=== PATIENT | female | born 1940 | race Caucasian/White ===

== ENCOUNTER 2016-11-07 23:53 | Emergency (ER) | payer OTHER ==
[2016-11-08 00:13] LABS: BASOPHILS 0.4 %; BASOPHILS ABSOLUTE 0.03 10/3/uL (0.0-0.16); EOSINOPHILS 0.5 %; EOSINOPHILS ABSOLUTE 0.04 10/3/uL (0.0-0.53); ER CBC TAT 0 Hrs 08 Mins; HEMATOCRIT 33.5 % (36.0-48.0); HEMOGLOBIN 10.8 g/dL (12.0-16.0); IMMATURE GRANULOCYTES 0.2 %; IMMATURE GRANULOCYTES ABSOLUTE 0.02 10/3/uL (0.0-0.11); LYMPHOCYTES 17.4 %; LYMPHOCYTES ABSOLUTE 1.45 10/3/uL (0.67-4.30); MEAN CORPUS HGB CONC 32.2 g/dL (32.0-36.0); MEAN CORPUSCULAR HEMOGLOB 29.7 pg (26.0-34.0); MEAN PLATELET VOLUME 9.8 fL (9.2-13.0); MONOCYTES 11.6 %; MONOCYTES ABSOLUTE 0.96 10/3/uL (0.21-1.20); NEUTROPHILS 69.9 %; NEUTROPHILS ABSOLUTE 5.81 10/3/uL (2.02-8.40); PLATELET COUNT 309 10/3/uL (150-400); RBC DISTRIBUTION WIDTH 15.3 % (12.0-16.0); RED CELL COUNT 3.64 10/6/uL (4.0-5.6); WHITE BLOOD CELLS 8.3 10/3/uL (4.5-10.5)
[2016-11-08 00:14] LABS: MANUAL DIFF NO %
[2016-11-08 00:30] LABS: INTERNATIONAL NORMAL RATI 2.6 UNITS (-); PARTIAL THROMBO TIME 45.1 SEC (22.5-37.2)
[2016-11-08 00:32] LABS: LACTATE 0.8 MMOL/L (0.3-2.4)
[2016-11-08 00:49] LABS: BUN (BLOOD UREA NITROGEN) 27 MG/DL (6-23); CALCIUM, SERUM 8.3 MG/DL (8.5-10.4); CHLORIDE, SERUM 94 MMOL/L (96-112); CO2 (CARBON DIOXIDE) 37 MMOL/L (24-34); CREATININE 0.93 MG/DL (0.55-1.02); GFR AFRICAN AMERICAN 70 ML/MIN (>=60); GFR NON AFRICAN AMERICAN 60 ML/MIN (>=60); GLUCOSE, SERUM 99 MG/DL (60-99); SODIUM, SERUM 139 MMOL/L (135-148); TROPONIN I <0.02 NG/ML (<0.05)
[2016-11-08 00:55] LABS: CHEST PAIN PROFILE TAT 0 Hrs 44 Mins
[2016-11-08 01:02] LABS: ASCORBIC ACID (UR NOT ORDER) NEG (NEG); BILIRUBIN, URINE NEGATIVE (NEG); ER URINALYSIS TAT 0 Hrs 18 Mins; KETONE, URINE NEGATIVE (NEG); LEUKOCYTE ESTERASE(NOT OR NEG (NEG); NITRITE (URINE) NEG (NEG); WBC (NOT ORDERED) (RFLEX) 1 (0-5)
[2016-11-08 01:19] LABS: PROCALCITONIN <0.05 ng/mL (<0.5)
== END 2016-11-08 04:20 | disposition home or self-care (01) ==
LOC: ER 23:53
PROVIDERS: Nurse Practitioner
DX: S09.90XA Unspecified injury of head, initial encounter (principal); S51.812A Laceration without foreign body of left forearm, initial encounter; I10 Essential (primary) hypertension; Z87.01 Personal history of pneumonia (recurrent); Z86.73 Personal history of transient ischemic attack (TIA), and cerebral infarction without residual deficits; F03.90 Unspecified dementia, unspecified severity, without behavioral disturbance, psychotic disturbance, mood disturbance, and anxiety; Z85.3 Personal history of malignant neoplasm of breast; Z87.891 Personal history of nicotine dependence; Z88.1 Allergy status to other antibiotic agents; W19.XXXA Unspecified fall, initial encounter
CPT/HCPCS: 70450; 71010; 80048; 81001; 83605; 83735; 83880; 84145; 84484; 85025; 85610; 85730; 87040; 93005; 99285

== ENCOUNTER 2016-12-22 15:20 | Inpatient (IN) | payer OTHER ==
--- NOTE | ~2016-12-22 | CN ---
Consultation Report [place] [id number] [facility] [place] [place]. [address] NAME: BUCK RAMEY : 42 STATUS : ADM IN PAT#: [id number] AGE: 76 ADM/REG DATE : 12/22/16 MR#: [id number] REPORT SERV DATE: 12/23/16 DICTATED BY: PRINCE OLIVEIRA DATE: 12/23/16 REPORT STATUS : Draft TRANSCRIBED BY: MODAkash DATE: 12/23/16 CONSULTATION DATE OF CONSULTATION: 12/23/2016 CHIEF COMPLAINT: Left femoral neck fracture. HISTORY: The patient is a 76-year-old female with chronic atrial fibrillation, significant dementia who fell yesterday and was brought to the emergency room with left femoral neck fracture. She has significant dementia, cannot give history. No family members are present. PAST MEDICAL HISTORY: Hypertension, hypercholesterolemia, significant dementia, atrial fibrillation on Coumadin therapy, anxiety. ALLERGIES: AMOXICILLIN. SURGICAL HISTORY: She has had a right hip hemiarthroplasty. The date is unknown. Unknown if she has had any other surgeries. FAMILY HISTORY: Noncontributory. SOCIAL HISTORY: Unknown. REVIEW OF SYSTEMS: Unable to be taken due to the patient's mental state. PHYSICAL EXAMINATION: GENERAL: Well-developed, well-nourished female, on oxygen. She appears to be older than stated age. No acute distress. HEENT: Normocephalic, atraumatic. RESPIRATORY: Nonlabored respirations, on oxygen. EXTREMITIES: No cyanosis, clubbing, or edema. MUSCULOSKELETAL: She has pain with any motion of her hip. No tenderness to palpation around her hip, unable to follow commands to complete the musculoskeletal exam. PSYCH: She is not alert nor oriented. NEURO: Unable to be taken due to her mental state. DATA: X-ray show a left displaced femoral neck fracture. ASSESSMENT: Left femoral neck fracture. PLAN: She is on Coumadin therapy. Gave her fresh frozen plasma last night. We will plan for surgery today. I will give her fresh frozen plasma again based on her INR this morning. Consultation Report [place] [id number] [facility] [place]. [address] NAME: BUCK RAMEY : 42 STATUS : ADM IN PAT#: [id number] AGE: 76 ADM/REG DATE : 12/22/16 MR#: [id number] REPORT SERV DATE: 12/23/16 DICTATED BY: PRINCE OLIVEIRA DATE: 12/23/16 REPORT STATUS : Draft TRANSCRIBED BY: GUSTAVO DATE: 12/23/16 Plan for surgery this afternoon. BSRay/GUSTAVO Prince Oliveira MD / [id number] CC: Venancio Kumar M.D.
--- NOTE | ~2016-12-22 | OP ---
Record Of Operation [facility] [address] [place]. [address] NAME: BUCK RAMEY : 42 STATUS : ADM IN [facility]#: [id number] AGE: 76 ADM/REG DATE : 12/22/16 MR#: [id number] REPORT SERV DATE: 12/26/16 DICTATED BY: JANAE JONES DATE: 12/26/16 REPORT STATUS : Draft TRANSCRIBED BY: GUSTAVO DATE: 12/26/16 DATE OF PROCEDURE: PULMONARY CRITICAL CARE PROCEDURE NOTE PROCEDURE: A left 7-Niuean thoracostomy insertion. INDICATION: Left pneumothorax. ANALGESIA: Propofol and fentanyl infusions already running for sedation while on mechanical ventilation. Local anesthetic was 1% lidocaine approximately 3 mL intradermally using 25- gauge needle. CONSENT: Telephone consent from daughter with nursing witness per protocol. DESCRIPTION OF PROCEDURE: The patient was prepped and draped in usual sterile fashion. A small wheal of lidocaine was used and then deeper infiltration was conducted. There were air bubbles aspirated through the small bore needle. During lidocaine infiltration, subsequently, a small leonid was made with an 11 blade scalpel, and a 7-Niuean thoracostomy tube was inserted into the left fourth rib space in the axillary line. More air escaped through the thoracostomy tube once it was placed. It was sutured into position and connected to Atrium underwater seal. A followup chest x-ray was pending at the time of this dictation. IMMEDIATE COMPLICATIONS: None. ESTIMATED BLOOD LOSS: None. Peak pressures and oxygen saturation remained consistent throughout the procedure. DREA/GUSTAVO Janae Jones MD / [id number] CC: Venancio Kumar M.D.
--- NOTE | ~2016-12-22 | CN ---
Consultation Report [facility] [address] [place]. [address] NAME: BUCK RAMEY : 41 STATUS : [facility]M [facility]#: [id number] AGE: 76 ADM/REG DATE : 12/22/16 MR#: [id number] REPORT SERV DATE: 12/23/16 DICTATED BY: KIAH BOO DATE: 12/23/16 REPORT STATUS : Draft TRANSCRIBED BY: MODAkash DATE: 12/23/16 PULMONARY CONSULT NOTE DATE OF CONSULTATION: 12/23/2016 CONSULT REASON: COPD, chronic hypoxic respiratory failure, and left pleural effusion. CHIEF COMPLAINT: Unable to obtain due to the patient's current medical status. HISTORY OF PRESENT ILLNESS: Ms Ramey is a 76-year-old female with a past medical history of breast cancer, status post mastectomy two years ago along with dementia, who currently lives in a [facility] facility. The patient had a mechanical fall and broke her left hip and is in need for surgery. She broke her right hip around five years ago. She has had multiple strokes and currently has dementia. She is on chronic anticoagulation for atrial fibrillation. Family does not live with her clearly and were not able to give a clear history, but mentioned that her mental status is usually much better than what is currently noted. PAST MEDICAL HISTORY: Breast cancer, status post surgery two years ago; right hip fracture, status post surgery five years ago; history of multiple CVA; atrial fibrillation, on anticoagulation; former tobacco user, COPD presumably; and mild dementia. HOME MEDICATIONS: Medication list reviewed. The patient is on albuterol with regard to pulmonary medications. ALLERGIES: AMOXICILLIN. FAMILY HISTORY: According to the daughter, there is no pertinent family history, everyone is healthy. SOCIAL HISTORY: The patient currently lives in a [facility] facility, remote past smoking history, but this was significant according to the daughter, no alcohol or illicit drug use. REVIEW OF SYSTEMS: Unable to obtain due to the patient's current medical status. PHYSICAL EXAMINATION: VITAL SIGNS: Afebrile, heart rate 100 to 139, respiratory rate 18 to 24, currently on Vapotherm with an oxygen saturation of 99%, blood pressure currently anywhere between 120s and 160s. GENERAL: The patient is arousable, she does seem a little bit lethargic, however. The patient is clearly in pain. HEENT: Neck is supple. Consultation Report [facility] [address] [place]. [address] NAME: BUCK RAMEY : 42 STATUS : ADM IN PAT#: [id number] AGE: 76 ADM/REG DATE : 12/22/16 MR#: [id number] REPORT SERV DATE: 12/23/16 DICTATED BY: KIAH BOO DATE: 12/23/16 REPORT STATUS : Draft TRANSCRIBED BY: MODL DATE: 12/23/16 PULMONARY: Normal breath sounds bilaterally, decreased breath sounds on the left lower lobe, no wheezing. CARDIAC: Irregularly irregular, no murmurs. ABDOMEN: Soft, nontender, nondistended. EXTREMITIES: Lower extremity is very tender on the left side, but otherwise good pulses throughout. LABORATORY EXAMINATION: Mild leukocytosis, anemia, INR 3. Good kidney function. Last arterial blood gas shows no significant elevation of hypercapnia, but this was yesterday. Urinalysis shows moderate leukocyte esterase and 45 white blood cell count. IMAGING DATA: Chest x-ray shows a sustained large left effusion versus atelectasis. This was noted in October. ASSESSMENT AND PLAN: Ms Ramey is a 76-year-old female with a past medical history noted above, who presents to the Pulmonary consult for the above-named problems. Acute hypoxic respiratory failure: Unclear as to which the level of hypoxia, we need to wean the FiO2 as tolerated, possibly even come off Vapotherm if the patient can sustain that. First, I would like to obtain an arterial blood gas to make sure she is not hypercapnic. With regard to the hypoxia, I am concerned this patient has a history of breast cancer, the etiology of this left pleural effusion, and most likely, this patient needs to have her anticoagulation reversed and thoracentesis for cytology and relief of hypoxia to be done prior to surgery. I have placed a call out to the surgeon, and I placed a call out to the primary team to coordinate reversal of therapeutic anticoagulation for thoracentesis and surgery. Thank you very much for this consultation, please call us with any further questions or concerns, currently hoping to get the thoracentesis done in the morning. HFQ/MODL Kiah Boo MD / [id number] CC: Venancio Kumar M.D.
--- NOTE | ~2016-12-22 | HP ---
History And Physical [place] [id number] [facility] [place]. [address] NAME: BUCK RAMEY : 42 STATUS : ADM IN [facility]#: [id number] AGE: 76 ADM/REG DATE : 12/22/16 MR#: [id number] REPORT SERV DATE: 12/23/16 DICTATED BY: MAGALI KAY DATE: 12/23/16 REPORT STATUS : Draft TRANSCRIBED BY: MODL DATE: 12/23/16 DATE OF ADMISSION: 12/22/2016 CHIEF COMPLAINT: Left hip pain. HISTORY OF PRESENT ILLNESS: The patient is a 76-year-old elderly female, who is a resident of assisted living facility at [facility] with reported fall the p.m. of 4:23, x-ray was obtained at the facility, was found to have a left femoral neck fracture, therefore patient was sent to [facility] ER for further evaluation. Hip x-ray and pelvis x-ray in the ER did confirm left femoral neck fracture. Therefore the patient admitted for further management and orthopedic consult was obtained. The patient with advanced dementia, unable to obtain complete medical and family history. Most history obtained from reviewing medical record obtained from [facility] as well as reviewing the patient's daughter and son-in-law who were present at the bedside during the exam. ALLERGIES: AMOXICILLIN. CODE STATUS: DNR with limited intervention. HOME MEDICATIONS: Include 1. Albuterol inhalation q.2 hours p.r.n. for shortness of breath. 2. Norvasc 5 mg daily. 3. Colace 100 mg daily. 4. Lasix 40 mg daily. 5. Ativan 0.5 mg p.o. twice a day p.r.n. for anxiety. 6. Lopressor 100 mg p.o. twice a day. 7. Remeron 30 mg p.o. at bedtime. 8. Dilantin 300 mg at bedtime. 9. Potassium chloride 20 mEq p.o. daily. 10.Exelon patch 4.6 mg at bedtime. 11.Zoloft 100 mg p.o. daily. 12.Zocor 20 mg at bedtime. 13.Ultram 50 mg p.o. every 4 hours p.r.n. for complaint of pain. 14.Warfarin 3 mg p.o. at bedtime. PAST MEDICAL HISTORY: 1. Positive for hypertension. 2. Chronic atrial fibrillation, on Coumadin therapy. 3. Hypercholesteremia. 4. Anxiety disorder. 5. Advanced dementia. 6. COPD with history of tobacco abuse. 7. History of gastric ulcer. 8. History of left breast cancer, status post mastectomy and chemotherapy treatment. History And Physical [place] [id number] [place]. [address] NAME: BUCK RAMEY : 41 STATUS : ADM IN [facility]#: [id number] AGE: 76 ADM/REG DATE : 12/22/16 MR#: [id number] REPORT SERV DATE: 12/23/16 DICTATED BY: MAGALI KAY DATE: 12/23/16 REPORT STATUS : Draft TRANSCRIBED BY: GUSTAVO DATE: 12/23/16 9. History of pneumonia with sepsis. 10.History of CVA. 11.History of nonocclusive seizure disorder. 12.History of bilateral lower extremity cellulitis. 13.History of chronic hypoxic respiratory failure with O2 dependency. PAST SURGICAL HISTORY: 1. Right hip hemiarthroplasty approximately 5 to 6 years ago. 2. Right Port-A-Cath placement approximately two years ago. 3. Left mastectomy for left breast cancer, status post chemotherapy 2 years ago. SOCIAL HISTORY: The patient with history of tobacco abuse. The patient is a resident of [facility] since October of 2016. FAMILY HISTORY: Positive for hypertension, coronary disease, and CVA. REVIEW OF SYSTEMS: Limited but the patient able to answer yes or no to simple questions. The patient denies any complaint of pain. Family reports the patient had no history of eye surgery, had no problem with swallowing. The patient with history of hypertension, has had chronic atrial fibrillation, on chronic Coumadin therapy. The patient denies any complaint of difficulty breathing. Patient with history of COPD secondary to history of tobacco abuse. Has been on home oxygen but the patient's daughter is unsure of the amount she was receiving. She reports that every time her oxygen has been removed, she gets low oxygen level. The patient's daughter reports the patient has had pneumonia and reports that since her pneumonia, she has not been able to get off oxygen. The patient with history of gastric ulcer. The patient has not had any difficulty urinating and has not had any Ndiaye prior to admission to [facility]. Family aware Ndiaye was placed in the ER secondary to her pending surgery. Family reports the patient has had a right hip repair approximately 5 to 6 years ago secondary to fall and since then, she has not been ambulating as much. The patient has had history of bilateral lower extremity cellulitis. The patient with generalized weakness. The patient's daughter reports that last week, the patient was talking but now she is not able to talk much. The patient's daughter reports the patient has had history that was started when she was placed on an antibiotic when she was in [place] but unsure what type of antibiotic. She does note that the patient has a history of penicillin allergy. The patient with history of anxiety disorder. No history of diabetes and does have chronic Coumadin therapy for atrial fibrillation. PHYSICAL EXAMINATION: VITAL SIGNS: Temperature range of 96.9 to 98.8, heart rate ranged from 108 to 139, respiratory rate ranged from 18 to 20, blood pressure ranged systolic from 131 to 134 and History And Physical [address] [address] NAME: BUCK RAMEY : 42 STATUS : ADM IN [facility]#: [id number] AGE: 76 ADM/REG DATE : 12/22/16 MR#: [id number] REPORT SERV DATE: 12/23/16 DICTATED BY: MAGALI KAY DATE: 12/23/16 REPORT STATUS : Draft TRANSCRIBED BY: GUSTAVO DATE: 12/23/16 diastolic from 61 to 85, sat O2 at 99 to 100% on Vapotherm with 35% FiO2. DATA: Laboratory study on 12/22/2016, revealed an ABG on admission with pH of 7.35, PCO2 of 64, PO2 of 83, HCO2 of 34.7, and iO2 of 32.0. ABG repeated at 1837 hours revealed pH of 7.45, pCO2 of 38, PO2 of 92, HCO2 of 26.1, and iO2 of 50.0. Sodium 138, potassium 3.9, chloride 99, CO2 of 35, BUN 21, creatinine 0.77, glucose 132, and GFR of 76. WBC of 15.5, hemoglobin 9.4, hematocrit 29.1, and platelet of 226. INR of 2.6, PT of 27.2. 12/23/2016, labs revealed sodium of 140, potassium 4.3, chloride of 103, CO2 of 33, BUN 21, creatinine of 0.61, glucose of 145, and GFR of 89. WBC of 16.0, hemoglobin 8.9, hematocrit 28.5, and platelet of 198. INR of 3.0, PT of 31.1, and PTT of 43.8. I's and O's of 891/250. Chest x-ray on 12/22/2016, revealed mild interstitial edema with an enlarging left pleural effusion, increasing left perihilar and left basilar atelectasis. Brain CT without contrast, on 12/22/2016, revealed no acute hemorrhage. Stable moderate atrophy and chronic white matter gliosis. Hip x-ray on 12/22/2016, and pelvis AP on 12/22/2016, revealed left femoral neck fracture and right hip prosthesis. PHYSICAL EXAMINATION: GENERAL: The patient is an elderly female, in no acute distress noted, easily arousable from sleep, does nod head to yes or no simple questions, otherwise the patient is not vocalizing as much. HEENT: Oral mucosa is moist. Nasal cannula with Vapotherm in use. Eyes PERRL. Nonicteric bilaterally. NECK: No JVD noted. CHEST: Noted status post left mastectomy and no other chest deformity noted. LUNGS: Clear to auscultation bilaterally. Symmetric expansion but decreased breath sounds on bilateral bases. CV: Irregular rhythm noted but no murmurs noted. ABDOMEN: Soft, nontender. Positive bowel sounds noted. : Ndiaye in use. Positive clear urine in bag to gravity. EXTREMITIES: Noted generalized arthritis in bilateral upper extremity. No edema in bilateral upper extremity. Bilateral lower arms with peripheral IV secured with dry and intact dressing. No edema or redness noted. Bilateral lower extremity with no edema. Left lower extremity with traction in use and splint noted. Left hip pain with palpation and slight movement. IMPRESSION: 1. Fall with left femoral neck fracture. 2. Chronic atrial fibrillation with RVR. 3. Chronic anticoagulation therapy secondary to history of atrial fibrillation. 4. Acute on chronic respiratory failure secondary to hypercapnia, chronic obstructive pulmonary disease, left pleural effusion, and left atelectasis. 5. Altered mental status, likely secondary to hypercapnia. 6. Gait impairment with history of fall. History And Physical [address] [address] NAME: BUCK RAMEY : 42 STATUS : ADM IN PAT#: [id number] AGE: 76 ADM/REG DATE : 12/22/16 MR#: [id number] REPORT SERV DATE: 12/23/16 DICTATED BY: MAGALI KAY DATE: 12/23/16 REPORT STATUS : Draft TRANSCRIBED BY: MODL DATE: 12/23/16 7. Hypertension, primary, controlled. 8. Hyperlipidemia. 9. Anxiety disorder. 10.History of advanced dementia. 11.History of nonocclusive seizure. 12.Anemia secondary to chronic disease. PLAN: 1. Appreciate consult from Orthopedic service. The patient was seen by Dr. Linton, but Dr. Goins had taken over the patient's care and planned for surgical intervention for her left femoral neck fracture. The patient remained on traction and bed rest. Continue pain management with morphine and place the patient on fall precaution. The patient at risk for recurrent falls and further injury. 2. The patient with history of atrial fibrillation with RVR. The patient's heart rate is in the low 100s, the highest is reportedly 150s but nonsustained likely secondary to the patient not getting her home med regimen of calcium channel mely and beta mely. We will plan to go ahead and give the patient home med regimen of beta- mely and continue Cardizem IV p.r.n. q 6. hours for any heart rate greater than 120. The patient is at risk for further and persistent RVR. Continue to monitor telemetry. 3. The patient with history of chronic anticoagulation, was on Coumadin 3 mg, admitted with INR of 2.6, however, this morning it is 3.0. The patient did not get any fresh frozen plasma as ordered by Dr. Linton since Dr. Goins did discontinue that order until pending discussion with family regarding the patient's surgery. We will need to monitor INR. We will obtain a.m. INR and PT. Monitor for any signs and symptoms of bleeding. The patient is at risk for bleeding. 4. The patient with history of COPD, O2 dependent at home, unsure of baseline O2 but the patient now requiring high amount of O2 via Vapotherm. The patient with admission ABG revealing hypercapnic hypoxic respiratory status. We will plan to continue Vapotherm. We will consult Pulmonary Services for assistance in management in weaning of Vapotherm. The patient is at risk for further hypoxia. Continue current breathing treatment as needed q.2 hours p.r.n. Patient also with history of COPD, x-ray revealed increasing left pleural effusion and left perihilar and left basilar atelectasis. 5. The patient with history of advanced dementia; however, the patient's baseline mental status had decreased likely secondary to hypercapnia. We will continue to monitor. Continue home regimen of Exelon. 6. The patient with history of anxiety disorder. We will continue Ativan p.r.n. for any anxiety episode. We will ensure this is available via IV since the patient is currently n.p.o. for pending surgery. 7. The patient with history of seizure, remain on Dilantin. Monitor for any signs and symptoms of breakthrough seizure. The patient is at risk for status epilepticus. 8. The patient with baseline hemoglobin and hematocrit of 9.4 and 29.1. We will continue to monitor. Expect blood loss during surgery. Plan to give blood transfusion if hemoglobin less than 7. The patient is at risk for further hypoxia. 9. Patient with history of gait impairment and history of fall. The patient will likely be referred to rehab post surgery. 10.The patient with history of hypertension, currently controlled. We will continue home med regimen and monitor blood pressure closely. The patient is at risk for recurrent History And Physical [address] [address] NAME: BUCK RAMEY : 42 STATUS : ADM IN PAT#: [id number] AGE: 76 ADM/REG DATE : 12/22/16 MR#: [id number] REPORT SERV DATE: 12/23/16 DICTATED BY: MAGALI KAY DATE: 12/23/16 REPORT STATUS : Draft TRANSCRIBED BY: MODAkash DATE: 12/23/16 CVA. 11.Code status addressed with family members. Continue to desire DNR with limited intervention. Family okay with antibiotic and blood if needed. 12.Plan to discharge the patient likely to inpatient rehab prior to returning back to assisted living facility. Family members still desire the patient to return back to [facility] when ready. DICTATED BY: Janel Price NP CLP/MODL Magali Kay M.D. / [id number] CC: Venancio Kumar M.D.
--- NOTE | ~2016-12-22 | OP ---
Record Of Operation [facility] [address] [place]. [address] NAME: BUCK RAMEY : 42 STATUS : DIS IN PAT#: [id number] AGE: 76 ADM/REG DATE : 12/22/16 MR#: [id number] REPORT SERV DATE: 01/01/17 DICTATED BY: ANGIE SANCHEZ DATE: 12/26/16 REPORT STATUS : Draft TRANSCRIBED BY: MODAkahs DATE: 12/26/16 DATE OF PROCEDURE: 12/25/2016 PREOPERATIVE DIAGNOSIS: Left hip displaced femoral neck fracture POSTOPERATIVE DIAGNOSIS: Left hip displaced femoral neck fracture PROCEDURE: Uncemented total hip arthroplasty, Tri-Lock. SIDE: Left. ASSOCIATE LOAN OFFICER: ANESTHESIA: See chart. SIZE: See chart. ESTIMATED BLOOD LOSS: About 100 mL. INDICATIONS FOR SURGERY: PROCEDURE: The patient was taken to the operating room and placed supine on the table without incident. Anesthetic was induced per the anesthesiologist. A Ndiaye catheter was placed by the nurse in the standard sterile technique. The correct side for the procedure was identified by preoperative markings and matched with the consent form. All personnel in the room were in agreement regarding the procedure, patient, and side. The patient was then carefully positioned and carefully padded and prepped and draped in the normal sterile fashion. The patient received prophylactic preoperative antibiotics at the appropriate time. The preoperative x-ray was brought up on the monitor. Again, this was reviewed with the staff in the room. According with the preoperative plan, and angled, an anterolateral incision was made centered over the trochanter extending from proximal posterior to distal anterior. Electrocautery was used to maintain meticulous hemostasis. The IT band was split in line with its fibers. A Charnley retractor was placed over saline moistened laps. A standard anterolateral approach to the hip was carried out dissecting in line with the vastus medialis fibers lifting the inferior 20% of the vastus medialis, proximally the interior 20% of the gluteus medius and gluteus minimus tendons off the anterior capsule. Periosteal elevator was used to elevate soft tissue gently directly off the proximal anterior femoral bone. Appropriate retractors were carefully placed. Complete anterior capsulectomy was performed. The hip was then carefully dislocated with a combination of traction maneuver by the miner assistant and scooping the ball out of the socket with a Hohmann. A femoral neck osteotomy was marked according to what had been preoperatively planned with a broach as a template. The distance for the femoral neck osteotomy was measured with a ruler. A femoral neck osteotomy was made with an oscillating saw under appropriate retraction. Meticulous hemostasis was again obtained. The leg was then brought up out of the anterior bag and Record Of Operation [facility] [address] [place]. [address] NAME: BUCK RAMEY : 41 STATUS : DIS IN PAT#: [id number] AGE: 76 ADM/REG DATE : 12/22/16 MR#: [id number] REPORT SERV DATE: 01/01/17 DICTATED BY: ANGIE SANCHEZ DATE: 12/26/16 REPORT STATUS : Draft TRANSCRIBED BY: GUSTAVO DATE: 12/26/16 positioned with the lower extremity in external rotation and slight flexion. Acetabular retractors were placed carefully palpating to be sure that they were directly on the bone. The acetabular labrum was excised with electrocautery and rongeur. Pulvinar fat was removed with a large curette and rongeur and again meticulous hemostasis was obtained. Sequential reamers were used in the acetabulum to 1 mm. less than the final size which was chosen. This was felt to give excellent interference fit. The acetabular fossa was then copiously irrigated with pulsatile lavage and actual acetabular component was placed and impacted and checked to make sure it was down snug. The overall alignment was checked. The acetabular small business director was then removed. Screws were placed in the standard fashion. A drill, depth gauge and self tapping screw placement taking care not to plunge as the drill holes were carefully placed. A trial liner was then placed and attention directed back to the proximal femur. The leg was placed back into the anterior bag. The proximal femur was prepared using a box chisel following by a T-handled reamer to determine the intramedullary alignment. This was followed by sequential broaches up to the final broach. Once it was seated in the appropriate position, a Calcar reamer was used to plane the proximal femur. Trial reduction was then done with a trial prosthetic ball and neck. A straight edge was used to compare the tip of the trochanter to center of the ball relationship to what had been noted on the preoperative x-ray. Careful reduction was then done of the total hip. Palpation was done to ascertain and compare leg lengths by palpating the nonoperative leg and also by checking soft tissue tension. The stability of the hip was checked in full extension with full external rotation and in full flexion with adduction, flexion and internal rotation. The hip was then redislocated with a bone hook. The femoral trial and femoral broach were removed. The acetabulum was then prepared under appropriate retraction by removing the trial liner. A central hole eliminator was placed and tightened. The shell was irrigated out. The actual insert was placed and impacted and then checked to be sure it was down snug with a joker. The leg was again positioned in the bag. The proximal femur exposed, irrigated and the actual thermal prosthesis was taken from the sales and merchandising representative and impacted. Once it was down, the trunnion was cleansed with a wet and dry lap and the prosthetic thermal head was placed and impacted and checked to be sure it was down snug. The acetabulum was irrigated and reduction was obtained. Again, we checked soft tissue tension, leg length and stability as described above. The hip was closed in a layered fashion with a 5 mm. Mersilene tape placed through a single drill hole in the proximal anterior/superior trochanter reattaching the gluteus medius and minimus fibers. The vastus lateralis, gluteus medius, and gluteus minimus were then closed in a sleeve. Drain was placed between the vastus and the IT band exiting distally anteriorly. The IT band was closed. Subcutaneous closure and skin closure were then obtained. A sterile dressing was applied. The patient was carefully positioned into a supine position and then awakened. The patient was then carefully transferred to the stretcher to be returned to the postoperative care unit without incident. COMPLICATION: None. SPECIMENS: Left femoral head. Record Of Operation [facility] [id number] [facility] [place]. [address] NAME: BUCK RAMEY : 42 STATUS : DIS IN PAT#: [id number] AGE: 76 ADM/REG DATE : 12/22/16 MR#: [id number] REPORT SERV DATE: 01/01/17 DICTATED BY: ANGIE SANCHEZ DATE: 12/26/16 REPORT STATUS : Draft TRANSCRIBED BY: MODAkash DATE: 12/26/16 WTB/MODL Emily Sanchez M.D. / [id number] CC: Venancio Kumar M.D.
--- NOTE | ~2016-12-22 | DS ---
Discharge Summary [facility] [address] [place]. [address] NAME: BUCK RAMEY : 42 STATUS : DIS IN PAT#: [id number] AGE: 77 ADM/REG DATE : 12/22/16 MR#: [id number] REPORT SERV DATE: 03/06/17 DICTATED BY: MAGALI KAY DATE: 03/05/17 REPORT STATUS : Draft TRANSCRIBED BY: GUSTAVO DATE: 03/05/17 Data Collection from hospitalization DISCHARGE DIAGNOSES: 1. Fall with left femoral neck fracture, status post left total hip arthroplasty. 2. Chronic atrial fibrillation with rapid ventricular response. 3. Anticoagulation therapy secondary to history of atrial fibrillation. 4. Acute on chronic respiratory failure secondary to hypercapnia and hypoxemia. 5. Left pneumothorax - resolved. 6. Advanced dementia. 7. Gait impairment with history of fall. 8. Electrolyte imbalance. 9. Hypertension. 10.Anxiety disorder. 11.History of left breast cancer. 12.History of cerebrovascular accident. 13.History of nonocclusive seizure disorder. CONSULTATIONS: 1. Prince Linton MD. 2. Kiah Boo MD. PROCEDURES PERFORMED: 1. Uncemented total hip arthroplasty-Tri Lock, 12/25/2016. 2. Left 7-Dominican thoracostomy insertion, 12/26/2016. 3. CT scan of the brain without contrast, 12/22/2016. 4. Ultrasound-guided thoracentesis, 12/24/2016. PATHOLOGY: Left pleural fluid for cytology (ThinPrep, direct smears and cell block) - benign reactive mesothelial cells and mononuclear cells. No evidence of malignancy or inflammatory background. Pleural fluid, left thoracentesis (ThinPrep) - benign. No malignant cells identified. Femoral head, left hip joint replacement - medullary hemorrhage consistent with clinical history of fracture. No evidence of infection or tumor. MEDICATIONS: Norvasc 5 mg daily, Colace 100 mg daily, Lovenox 50 mg subcutaneously every 12 hours, ferrous sulfate 300 mg twice a day, Dilantin 300 mg at bedtime, Centrum multivitamin with minerals 15 mL daily, Lopressor 100 mg twice a day, Exelon 4.6 mg topically at bedtime, Zoloft 100 mg daily, Remeron 30 mg at bedtime, Coumadin as instructed, DuoNeb 3 mL via inhaler every four hours while awake, Tylenol 650 mg every four hours orally or rectally as needed, Ultram 50 mg every four hours as needed, Ativan 0.5 mg twice a day as needed, milk of magnesia 30 mL as needed, Proventil one nebulized inhaler every two hours as needed, Zocor 20 mg at bedtime, Lasix 40 mg daily, potassium chloride 20 mEq daily, [place] 5/325 one tablet every four hours as needed for [id number] pain, and Protonix 40 mg daily. CONDITION AT DISCHARGE: Stable. DISPOSITION: The patient was discharged to [facility] on a regular diet with activities as instructed. She would follow up with Dr. Boo's nurse Discharge Summary [address] [address] NAME: BUCK RAMEY : 42 STATUS : DIS IN PAT#: [id number] AGE: 77 ADM/REG DATE : 12/22/16 MR#: [id number] REPORT SERV DATE: 03/06/17 DICTATED BY: MAGALI KAY DATE: 03/05/17 REPORT STATUS : Draft TRANSCRIBED BY: GUSTAVO DATE: 03/05/17 practitionerSherie, on 01/07/2017. HOSPITAL COURSE: This is a 76-year-old female who is a resident of an assisted living facility at [facility] who had a fall and an x-ray was obtained at that facility. She was found to have a left femoral neck fracture. She was sent to the [facility] Emergency Room. Hip x-ray and pelvic x-ray in the emergency room did confirm left femoral neck fracture. She was admitted to the hospital at this time for further evaluation and treatment. Upon admission, INR level was 2.6. White count was 15.5. Chest x-ray revealed mild interstitial edema with enlarging left pleural effusion, increasing left perihilar and left basilar atelectasis. A CT scan of the brain without contrast revealed no acute hemorrhage. There was stable moderate atrophy and chronic white matter gliosis. We would continue pain management with morphine and place the patient on fall precautions. She would remain on traction and bedrest. The patient's home medication regimen of beta-mely and IV Cardizem were continued. The following day, the patient was seen by Dr. Prince Linton regarding left femoral neck fracture. The patient has significant dementia and could not give a history. X-rays showed left displaced femoral neck fracture. She is on Coumadin therapy. She was going to receive fresh frozen plasma. Treatment options were discussed and it was elected to proceed with surgical intervention. She was also seen by Dr. Kiah Boo. The patient is on chronic anticoagulation for atrial fibrillation. She has had multiple strokes in the past. Urinalysis showed moderate leukocyte esterase and 45 white blood cells. Chest x-ray showed a sustained of large left effusion versus atelectasis, that had been noticed in October. She was felt to have acute hypoxic respiratory failure. FiO2 would be weaned as tolerated. Possibly, she may even come off Vapotherm if she could sustain this. Arterial blood gas was going to be checked to make sure she was not hypercapnic. With regard to the hypoxia, there was concern that the patient has a history of breast cancer and the etiology of the left effusion and most likely this patient would need to have her anticoagulation reversed and thoracentesis for cytology and release of hypoxia prior to surgery. On 12/24/2016, she was more conversant. She still had some confusion. The patient underwent ultrasound-guided thoracentesis, 1.7 liters of fluid was evacuated on 12/25/2016. Over the next couple of days, the chest tube remained in place. Her agitation was improving. SARI hose remained in place. We encouraged her to participate with Physical Therapy as tolerated. She was going to be transferred to the floor. On 12/29/2016, she was awake and alert. She seemed to be doing much better. We encouraged her to mobilize with Physical Therapy. She was evaluated by Occupational and Physical Therapy. Speech/Language Pathology performed a bedside swallow study. The next day, she denied any complaints of pain. She looked amazingly better. Her dressings were dry. Her chest x-ray did show left effusion. On 12/31/2016, she was confused, but alert. She had normal distal pulses. She was ambulating with Physical Therapy. Pathology results were negative x2. There was still some pleural effusions/atelectasis. Chest x-ray was improving. The pleural fluid had decreased. Her heart rate was stable. Discharge instructions were given. Due to her improved and stable condition, she was discharged to [facility] with the above-stated instructions. Information collected by: Deepali Merida Discharge Summary [facility] [address] [place]. [address] NAME: BUCK RAMEY : 42 STATUS : DIS IN PAT#: [id number] AGE: 77 ADM/REG DATE : 12/22/16 MR#: [id number] REPORT SERV DATE: 03/06/17 DICTATED BY: MAGALI KAY DATE: 03/05/17 REPORT STATUS : Draft TRANSCRIBED BY: MODAkash DATE: 03/05/17 I submit the above information as my discharge summary. TG/GUSTAVO Magali Kay M.D. / [id number] CC: Sue Tripp MD
[2016-12-22 14:30] LABS: BASOPHILS 0.1 %; BASOPHILS ABSOLUTE 0.02 10/3/uL (0.0-0.16); EOSINOPHILS 0.2 %; EOSINOPHILS ABSOLUTE 0.03 10/3/uL (0.0-0.53); HEMATOCRIT 29.1 % (36.0-48.0); HEMOGLOBIN 9.4 g/dL (12.0-16.0); IMMATURE GRANULOCYTES 0.2 %; IMMATURE GRANULOCYTES ABSOLUTE 0.03 10/3/uL (0.0-0.11); LYMPHOCYTES 3.1 %; LYMPHOCYTES ABSOLUTE 0.48 10/3/uL (0.67-4.30); MANUAL DIFF NO %; MEAN CORPUS HGB CONC 32.3 g/dL (32.0-36.0); MEAN CORPUSCULAR HEMOGLOB 29.6 pg (26.0-34.0); MEAN CORPUSCULAR VOLUME 91.5 fL (80-100); MEAN PLATELET VOLUME 9.5 fL (9.2-13.0); MONOCYTES 5.9 %; MONOCYTES ABSOLUTE 0.91 10/3/uL (0.21-1.20); NEUTROPHILS 90.5 %; NEUTROPHILS ABSOLUTE 14.04 10/3/uL (2.02-8.40); PLATELET COUNT 226 10/3/uL (150-400); RED CELL COUNT 3.18 10/6/uL (4.0-5.6); WHITE BLOOD CELLS 15.5 10/3/uL (4.5-10.5)
[2016-12-22 14:39] LABS: CALCIUM, SERUM 8.8 MG/DL (8.5-10.4); CHLORIDE, SERUM 99 MMOL/L (96-112); CO2 (CARBON DIOXIDE) 35 MMOL/L (24-34); CREATININE 0.77 MG/DL (0.55-1.02); GFR AFRICAN AMERICAN 88 ML/MIN (>=60); GFR NON AFRICAN AMERICAN 76 ML/MIN (>=60); POTASSIUM, SERUM 3.9 MMOL/L (3.5-5.3); SODIUM, SERUM 138 MMOL/L (135-148)
[2016-12-22 14:40] LABS: BUN (BLOOD UREA NITROGEN) 21 MG/DL (6-23); GLUCOSE, SERUM 132 MG/DL (60-99)
[2016-12-22 14:42] LABS: INTERNATIONAL NORMAL RATI 2.6 UNITS (-); PARTIAL THROMBO TIME 43.8 SEC (22.5-37.2); PROTIME (NOT ORD) 27.2 SEC (12.0-14.5)
[2016-12-22 15:42] LABS: BE (BASE EXCESS) 7.2 MEQ/L (0 +/- 2.5); CARBOXYHEMOGLOBIN 1.6 % (0-3); DEVICE NC; HCO3 (ACTUAL BICARBONATE) 34.7 MEQ/L (23-27); HEMOBLOGIN CONTENT 12.5 G/DL (12-16); INSTRUMENT SERIAL # 8087; METHEMOGLOBIN 0.2 % (0-3); O2 CONTENT 16.5 VOL% (18-24); PCO2 (CO2 TENSION) 64 MMHG (35-45); PO2 (O2 TENSION) 83 MMHG (79-93); SAMPLE Arterial; pH 7.35 (7.37-7.43)
[2016-12-22 15:43] LABS: ALLENS TEST Pos
[2016-12-22] MEDS ORDERED: D100 PO (15:46)
[2016-12-22] MEDS ORDERED: DSS PO (15:47)
[2016-12-22] MEDS ORDERED: LOP100 PO (15:47)
[2016-12-22] MEDS ORDERED: ZOCOR20 PO (15:48)
[2016-12-22] MEDS ORDERED: L40 PO (15:48)
[2016-12-22] MEDS ORDERED: KCL20UDL PO (15:48)
[2016-12-22] MEDS ORDERED: NORV5 PO (15:49)
[2016-12-22] MEDS ORDERED: EXELON4.6T TOP (15:49)
[2016-12-22] MEDS ORDERED: COUMADIN3 MG PO (15:50)
[2016-12-22] MEDS ORDERED: REMERON30 MG PO (15:50)
[2016-12-22] MEDS ORDERED: ZOL100 PO (15:51)
[2016-12-22] MEDS ORDERED: ALBUTEROL5 INH (15:53)
[2016-12-22] MEDS ORDERED: ULTRAM50 PO (15:53)
[2016-12-22] MEDS ORDERED: ATV.5 PO (15:54)
[2016-12-22 16:10] LABS: ASCORBIC ACID (UR NOT ORDER) 40 (NEG); BILIRUBIN, URINE NEGATIVE (NEG); ER URINALYSIS TAT 0 Hrs 18 Mins; KETONE, URINE NEGATIVE (NEG); LEUKOCYTE ESTERASE(NOT OR MOD (NEG); NITRITE (URINE) NEG (NEG); WBC (NOT ORDERED) (RFLEX) 45 (0-5)
[2016-12-22 18:42] LABS: BE (BASE EXCESS) 2.2 MEQ/L (0 +/- 2.5); CARBOXYHEMOGLOBIN 1.3 % (0-3); DEVICE VAPOTHERM 15L; HCO3 (ACTUAL BICARBONATE) 26.1 MEQ/L (23-27); HEMOBLOGIN CONTENT 10.1 G/DL (12-16); INSTRUMENT SERIAL # 8087; METHEMOGLOBIN 0.2 % (0-3); O2 CONTENT 13.7 VOL% (18-24); OPERATOR ID 14472; PCO2 (CO2 TENSION) 38 MMHG (35-45); PO2 (O2 TENSION) 92 MMHG (79-93); SAMPLE Arterial; pH 7.45 (7.37-7.43)
[2016-12-23 07:21] LABS: BASOPHILS 0.1 %; BASOPHILS ABSOLUTE 0.02 10/3/uL (0.0-0.16); EOSINOPHILS 0.5 %; EOSINOPHILS ABSOLUTE 0.08 10/3/uL (0.0-0.53); HEMATOCRIT 28.5 % (36.0-48.0); HEMOGLOBIN 8.9 g/dL (12.0-16.0); IMMATURE GRANULOCYTES 0.4 %; IMMATURE GRANULOCYTES ABSOLUTE 0.06 10/3/uL (0.0-0.11); LYMPHOCYTES 3.3 %; LYMPHOCYTES ABSOLUTE 0.53 10/3/uL (0.67-4.30); MANUAL DIFF NO %; MEAN CORPUS HGB CONC 31.2 g/dL (32.0-36.0); MEAN CORPUSCULAR HEMOGLOB 29.5 pg (26.0-34.0); MEAN CORPUSCULAR VOLUME 94.4 fL (80-100); MONOCYTES 7.6 %; MONOCYTES ABSOLUTE 1.22 10/3/uL (0.21-1.20); NEUTROPHILS 88.1 %; NEUTROPHILS ABSOLUTE 14.12 10/3/uL (2.02-8.40); PLATELET COUNT 198 10/3/uL (150-400); RBC DISTRIBUTION WIDTH 14.1 % (12.0-16.0); RED CELL COUNT 3.02 10/6/uL (4.0-5.6)
[2016-12-23 07:28] LABS: PROTIME (NOT ORD) 31.1 SEC (12.0-14.5)
[2016-12-23 07:33] LABS: BUN (BLOOD UREA NITROGEN) 21 MG/DL (6-23); CALCIUM, SERUM 8.5 MG/DL (8.5-10.4); CHLORIDE, SERUM 103 MMOL/L (96-112); CO2 (CARBON DIOXIDE) 33 MMOL/L (24-34); CREATININE 0.61 MG/DL (0.55-1.02); GFR AFRICAN AMERICAN 103 ML/MIN (>=60); GFR NON AFRICAN AMERICAN 89 ML/MIN (>=60); GLUCOSE, SERUM 145 MG/DL (60-99); POTASSIUM, SERUM 4.3 MMOL/L (3.5-5.3); SODIUM, SERUM 140 MMOL/L (135-148)
[2016-12-23 14:30] LABS: ALLENS TEST Pos; BE (BASE EXCESS) 6.2 MEQ/L (0 +/- 2.5); CARBOXYHEMOGLOBIN 0.3 % (0-3); HCO3 (ACTUAL BICARBONATE) 32.8 MEQ/L (23-27); HEMOBLOGIN CONTENT 9.5 G/DL (12-16); INSTRUMENT SERIAL # 35151; METHEMOGLOBIN 0.8 % (0-3); PCO2 (CO2 TENSION) 59 MMHG (35-45); PO2 (O2 TENSION) 98 MMHG (79-93); SAMPLE Arterial; pH 7.36 (7.37-7.43)
[2016-12-24 06:53] LABS: BASOPHILS 0.2 %; BASOPHILS ABSOLUTE 0.02 10/3/uL (0.0-0.16); EOSINOPHILS 1.9 %; EOSINOPHILS ABSOLUTE 0.19 10/3/uL (0.0-0.53); HEMATOCRIT 23.5 % (36.0-48.0); HEMOGLOBIN 7.2 g/dL (12.0-16.0); IMMATURE GRANULOCYTES 0.5 %; IMMATURE GRANULOCYTES ABSOLUTE 0.05 10/3/uL (0.0-0.11); LYMPHOCYTES 9.2 %; MANUAL DIFF NO %; MEAN CORPUS HGB CONC 30.6 g/dL (32.0-36.0); MEAN CORPUSCULAR HEMOGLOB 29.1 pg (26.0-34.0); MEAN CORPUSCULAR VOLUME 95.1 fL (80-100); MEAN PLATELET VOLUME 10.2 fL (9.2-13.0); MONOCYTES 11.3 %; NEUTROPHILS 76.9 %; NEUTROPHILS ABSOLUTE 7.49 10/3/uL (2.02-8.40); PLATELET COUNT 142 10/3/uL (150-400); RBC DISTRIBUTION WIDTH 13.9 % (12.0-16.0); RED CELL COUNT 2.47 10/6/uL (4.0-5.6); WHITE BLOOD CELLS 9.8 10/3/uL (4.5-10.5)
[2016-12-24 07:01] LABS: INTERNATIONAL NORMAL RATI 1.4 UNITS (-)
[2016-12-24 07:09] LABS: BUN (BLOOD UREA NITROGEN) 20 MG/DL (6-23); CALCIUM, SERUM 9.3 MG/DL (8.5-10.4); CHLORIDE, SERUM 102 MMOL/L (96-112); CO2 (CARBON DIOXIDE) 32 MMOL/L (24-34); CREATININE 0.54 MG/DL (0.55-1.02); GFR AFRICAN AMERICAN 107 ML/MIN (>=60); GFR NON AFRICAN AMERICAN 92 ML/MIN (>=60); GLUCOSE, SERUM 117 MG/DL (60-99); SODIUM, SERUM 140 MMOL/L (135-148)
[2016-12-24 16:02] LABS: HEMATOCRIT 27.6 % (36.0-48.0); HEMOGLOBIN 8.9 g/dL (12.0-16.0)
[2016-12-24 17:07] LABS: BD FL LYMPH (NOT ORD) 11 %; BF BASO (NOT OF) 0 %; BF LARGE MONONUCLEAR 80 %; BODY FLUID EOS (NOT ORD) 2 %; BODY FLUID SEG (NOT ORD) 7 %
[2016-12-24 17:09] LABS: BD FL SOURCE (NOT ORD) LT PLEURAL
[2016-12-24 17:40] LABS: GLUCOSE BODY FL (NOT ORD) 126 MG/DL; LDH BODY FLUID (NOT ORD) 100 U/L; PROTEIN BODY FLUID 2.7 G/DL
[2016-12-24 20:22] LABS: BF TOTAL CELL CT (NOT ORD 1406 /MM3; BODY FLUID RBC (NOT ORD) 9801 /MM3
[2016-12-25 10:03] LABS: BASOPHILS 0.1 %; BASOPHILS ABSOLUTE 0.01 10/3/uL (0.0-0.16); EOSINOPHILS 2.6 %; EOSINOPHILS ABSOLUTE 0.25 10/3/uL (0.0-0.53); HEMATOCRIT 28.1 % (36.0-48.0); IMMATURE GRANULOCYTES 0.4 %; IMMATURE GRANULOCYTES ABSOLUTE 0.04 10/3/uL (0.0-0.11); LYMPHOCYTES 5.5 %; LYMPHOCYTES ABSOLUTE 0.53 10/3/uL (0.67-4.30); MEAN CORPUSCULAR HEMOGLOB 29.3 pg (26.0-34.0); MEAN PLATELET VOLUME 11.4 fL (9.2-13.0); MONOCYTES ABSOLUTE 0.96 10/3/uL (0.21-1.20); NEUTROPHILS 81.4 %; NEUTROPHILS ABSOLUTE 7.77 10/3/uL (2.02-8.40); PLATELET COUNT 142 10/3/uL (150-400); RBC DISTRIBUTION WIDTH 15.5 % (12.0-16.0); WHITE BLOOD CELLS 9.6 10/3/uL (4.5-10.5)
[2016-12-25 10:12] LABS: MEAN CORPUSCULAR VOLUME 91.5 fL (80-100); RED CELL COUNT 3.07 10/6/uL (4.0-5.6)
[2016-12-25 10:13] LABS: BUN (BLOOD UREA NITROGEN) 15 MG/DL (6-23); CALCIUM, SERUM 8.9 MG/DL (8.5-10.4); CHLORIDE, SERUM 101 MMOL/L (96-112); CO2 (CARBON DIOXIDE) 35 MMOL/L (24-34); CREATININE 0.61 MG/DL (0.55-1.02); GFR AFRICAN AMERICAN 103 ML/MIN (>=60); GFR NON AFRICAN AMERICAN 89 ML/MIN (>=60); GLUCOSE, SERUM 128 MG/DL (60-99); MANUAL DIFF NO %; POTASSIUM, SERUM 3.9 MMOL/L (3.5-5.3); SODIUM, SERUM 140 MMOL/L (135-148)
[2016-12-25 10:27] LABS: PLATELET ESTIMATE SLT DEC (ADEQUATE)
[2016-12-25 10:28] LABS: POLYCHROMASIA 1+ (2-5/OIF) (0-1/OIF)
[2016-12-25 21:24] LABS: HCO3 (ACTUAL BICARBONATE) 30.7 MEQ/L (23-27); HEMOBLOGIN CONTENT 11.8 G/DL (12-16); INSTRUMENT SERIAL # 35151; METHEMOGLOBIN 0.8 % (0-3); MODE CMV; O2 CONTENT 15.2 VOL% (18-24); OPERATOR ID 23712; PCO2 (CO2 TENSION) 51 MMHG (35-45); PO2 (O2 TENSION) 66 MMHG (79-93); SAMPLE Arterial
[2016-12-25 23:52] LABS: BE (BASE EXCESS) 5.2 MEQ/L (0 +/- 2.5); CARBOXYHEMOGLOBIN 0.3 % (0-3); HCO3 (ACTUAL BICARBONATE) 30.5 MEQ/L (23-27); HEMOBLOGIN CONTENT 10.8 G/DL (12-16); INSTRUMENT SERIAL # 35151; METHEMOGLOBIN 0.7 % (0-3); PCO2 (CO2 TENSION) 48 MMHG (35-45); PO2 (O2 TENSION) 75 MMHG (79-93); pH 7.42 (7.37-7.43)
[2016-12-25 23:53] LABS: ALLENS TEST Pos; O2 CONTENT 14.3 VOL% (18-24); OPERATOR ID 33449; SAMPLE Arterial; TIDAL VOLUME 400 ML
[2016-12-26 04:14] LABS: BASOPHILS 0.2 %; BASOPHILS ABSOLUTE 0.02 10/3/uL (0.0-0.16); EOSINOPHILS 2.8 %; EOSINOPHILS ABSOLUTE 0.26 10/3/uL (0.0-0.53); HEMATOCRIT 29.1 % (36.0-48.0); HEMOGLOBIN 9.9 g/dL (12.0-16.0); IMMATURE GRANULOCYTES 0.2 %; IMMATURE GRANULOCYTES ABSOLUTE 0.02 10/3/uL (0.0-0.11); LYMPHOCYTES 7.2 %; LYMPHOCYTES ABSOLUTE 0.67 10/3/uL (0.67-4.30); MEAN CORPUSCULAR HEMOGLOB 31.7 pg (26.0-34.0); MEAN CORPUSCULAR VOLUME 93.3 fL (80-100); MEAN PLATELET VOLUME 11.8 fL (9.2-13.0); MONOCYTES 10.5 %; MONOCYTES ABSOLUTE 0.98 10/3/uL (0.21-1.20); NEUTROPHILS 79.1 %; NEUTROPHILS ABSOLUTE 7.34 10/3/uL (2.02-8.40); PLATELET COUNT 168 10/3/uL (150-400); RBC DISTRIBUTION WIDTH 14.8 % (12.0-16.0); RED CELL COUNT 3.12 10/6/uL (4.0-5.6); WHITE BLOOD CELLS 9.3 10/3/uL (4.5-10.5)
[2016-12-26 04:20] LABS: INTERNATIONAL NORMAL RATI 1.3 UNITS (-); PROTIME (NOT ORD) 15.6 SEC (12.0-14.5)
[2016-12-26 04:22] LABS: CHLORIDE, SERUM 97 MMOL/L (96-112); CO2 (CARBON DIOXIDE) 32 MMOL/L (24-34); CREATININE 0.58 MG/DL (0.55-1.02); GFR AFRICAN AMERICAN 105 ML/MIN (>=60); GFR NON AFRICAN AMERICAN 90 ML/MIN (>=60); MANUAL DIFF NO %; SODIUM, SERUM 137 MMOL/L (135-148)
[2016-12-26 04:25] LABS: POTASSIUM, SERUM 3.8 MMOL/L (3.5-5.3)
[2016-12-26 04:26] LABS: BUN (BLOOD UREA NITROGEN) 12 MG/DL (6-23); CALCIUM, SERUM 7.4 MG/DL (8.5-10.4); GLUCOSE, SERUM 110 MG/DL (60-99)
[2016-12-26 05:40] LABS: PLATELET ESTIMATE ADQ (ADEQUATE)
[2016-12-27 03:34] LABS: BASOPHILS 0.2 %; BASOPHILS ABSOLUTE 0.02 10/3/uL (0.0-0.16); EOSINOPHILS 1.2 %; HEMATOCRIT 29.1 % (36.0-48.0); HEMOGLOBIN 9.5 g/dL (12.0-16.0); IMMATURE GRANULOCYTES 0.4 %; IMMATURE GRANULOCYTES ABSOLUTE 0.03 10/3/uL (0.0-0.11); LYMPHOCYTES 12.8 %; LYMPHOCYTES ABSOLUTE 1.08 10/3/uL (0.67-4.30); MEAN CORPUS HGB CONC 32.6 g/dL (32.0-36.0); MEAN CORPUSCULAR HEMOGLOB 29.9 pg (26.0-34.0); MEAN CORPUSCULAR VOLUME 91.5 fL (80-100); MEAN PLATELET VOLUME 10.7 fL (9.2-13.0); MONOCYTES 12.4 %; MONOCYTES ABSOLUTE 1.05 10/3/uL (0.21-1.20); NEUTROPHILS ABSOLUTE 6.17 10/3/uL (2.02-8.40); PLATELET COUNT 174 10/3/uL (150-400); RBC DISTRIBUTION WIDTH 14.4 % (12.0-16.0); RED CELL COUNT 3.18 10/6/uL (4.0-5.6); WHITE BLOOD CELLS 8.5 10/3/uL (4.5-10.5)
[2016-12-27 03:35] LABS: MANUAL DIFF NO %
[2016-12-27 03:40] LABS: INTERNATIONAL NORMAL RATI 1.4 UNITS (-); PROTIME (NOT ORD) 17.3 SEC (12.0-14.5)
[2016-12-27 03:47] LABS: BUN (BLOOD UREA NITROGEN) 18 MG/DL (6-23); CALCIUM, SERUM 8.3 MG/DL (8.5-10.4); CHLORIDE, SERUM 102 MMOL/L (96-112); CO2 (CARBON DIOXIDE) 32 MMOL/L (24-34); CREATININE 0.65 MG/DL (0.55-1.02); GFR AFRICAN AMERICAN 101 ML/MIN (>=60); GFR NON AFRICAN AMERICAN 87 ML/MIN (>=60); GLUCOSE, SERUM 89 MG/DL (60-99); PHOSPHORUS, SERUM 3.3 MG/DL (2.5-4.5); POTASSIUM, SERUM 3.8 MMOL/L (3.5-5.3); SODIUM, SERUM 142 MMOL/L (135-148)
[2016-12-28 05:07] LABS: BUN (BLOOD UREA NITROGEN) 15 MG/DL (6-23); CALCIUM, SERUM 8.4 MG/DL (8.5-10.4); CHLORIDE, SERUM 101 MMOL/L (96-112); CO2 (CARBON DIOXIDE) 31 MMOL/L (24-34); GFR AFRICAN AMERICAN 103 ML/MIN (>=60); GFR NON AFRICAN AMERICAN 89 ML/MIN (>=60); POTASSIUM, SERUM 3.5 MMOL/L (3.5-5.3); SODIUM, SERUM 139 MMOL/L (135-148)
[2016-12-28 05:09] LABS: GLUCOSE, SERUM 110 MG/DL (60-99)
[2016-12-29 05:02] LABS: BASOPHILS 0.3 %; BASOPHILS ABSOLUTE 0.02 10/3/uL (0.0-0.16); EOSINOPHILS 4.1 %; EOSINOPHILS ABSOLUTE 0.28 10/3/uL (0.0-0.53); HEMATOCRIT 29.4 % (36.0-48.0); HEMOGLOBIN 9.8 g/dL (12.0-16.0); IMMATURE GRANULOCYTES 0.4 %; IMMATURE GRANULOCYTES ABSOLUTE 0.03 10/3/uL (0.0-0.11); LYMPHOCYTES 12.4 %; LYMPHOCYTES ABSOLUTE 0.85 10/3/uL (0.67-4.30); MEAN CORPUS HGB CONC 33.3 g/dL (32.0-36.0); MEAN CORPUSCULAR HEMOGLOB 30.1 pg (26.0-34.0); MEAN CORPUSCULAR VOLUME 90.2 fL (80-100); MEAN PLATELET VOLUME 9.9 fL (9.2-13.0); MONOCYTES 12.4 %; MONOCYTES ABSOLUTE 0.85 10/3/uL (0.21-1.20); NEUTROPHILS 70.4 %; NEUTROPHILS ABSOLUTE 4.85 10/3/uL (2.02-8.40); RBC DISTRIBUTION WIDTH 14.7 % (12.0-16.0); RED CELL COUNT 3.26 10/6/uL (4.0-5.6); WHITE BLOOD CELLS 6.9 10/3/uL (4.5-10.5)
[2016-12-29 05:03] LABS: MANUAL DIFF NO %; PLATELET COUNT 240 10/3/uL (150-400)
[2016-12-29 05:13] LABS: BUN (BLOOD UREA NITROGEN) 7 MG/DL (6-23); CHLORIDE, SERUM 104 MMOL/L (96-112); CO2 (CARBON DIOXIDE) 31 MMOL/L (24-34); CREATININE 0.49 MG/DL (0.55-1.02); GFR AFRICAN AMERICAN 110 ML/MIN (>=60); GFR NON AFRICAN AMERICAN 95 ML/MIN (>=60); GLUCOSE, SERUM 103 MG/DL (60-99); POTASSIUM, SERUM 3.3 MMOL/L (3.5-5.3); SODIUM, SERUM 143 MMOL/L (135-148)
[2016-12-29 05:14] LABS: CALCIUM, SERUM 8.3 MG/DL (8.5-10.4)
[2016-12-30 05:26] LABS: INTERNATIONAL NORMAL RATI 1.8 UNITS (-)
[2016-12-30 05:27] LABS: BUN (BLOOD UREA NITROGEN) 6 MG/DL (6-23); CALCIUM, SERUM 8.4 MG/DL (8.5-10.4); CHLORIDE, SERUM 102 MMOL/L (96-112); CO2 (CARBON DIOXIDE) 35 MMOL/L (24-34); CREATININE 0.54 MG/DL (0.55-1.02); GFR AFRICAN AMERICAN 107 ML/MIN (>=60); GFR NON AFRICAN AMERICAN 92 ML/MIN (>=60); GLUCOSE, SERUM 97 MG/DL (60-99); POTASSIUM, SERUM 3.3 MMOL/L (3.5-5.3); SODIUM, SERUM 140 MMOL/L (135-148)
[2016-12-30 05:28] LABS: PROTIME (NOT ORD) 20.5 SEC (12.0-14.5)
[2016-12-31 05:04] LABS: BASOPHILS 0.4 %; BASOPHILS ABSOLUTE 0.03 10/3/uL (0.0-0.16); EOSINOPHILS 4.8 %; EOSINOPHILS ABSOLUTE 0.34 10/3/uL (0.0-0.53); HEMATOCRIT 31.9 % (36.0-48.0); HEMOGLOBIN 10.2 g/dL (12.0-16.0); IMMATURE GRANULOCYTES 0.4 %; IMMATURE GRANULOCYTES ABSOLUTE 0.03 10/3/uL (0.0-0.11); INTERNATIONAL NORMAL RATI 1.8 UNITS (-); LYMPHOCYTES 12.6 %; LYMPHOCYTES ABSOLUTE 0.89 10/3/uL (0.67-4.30); MEAN CORPUSCULAR HEMOGLOB 29.7 pg (26.0-34.0); MEAN CORPUSCULAR VOLUME 92.7 fL (80-100); MEAN PLATELET VOLUME 9.5 fL (9.2-13.0); MONOCYTES 8.9 %; MONOCYTES ABSOLUTE 0.63 10/3/uL (0.21-1.20); NEUTROPHILS 72.9 %; NEUTROPHILS ABSOLUTE 5.14 10/3/uL (2.02-8.40); PROTIME (NOT ORD) 20.8 SEC (12.0-14.5); RBC DISTRIBUTION WIDTH 14.3 % (12.0-16.0); RED CELL COUNT 3.44 10/6/uL (4.0-5.6); WHITE BLOOD CELLS 7.1 10/3/uL (4.5-10.5)
[2016-12-31 05:06] LABS: MANUAL DIFF NO %; PLATELET COUNT 341 10/3/uL (150-400)
[2016-12-31 05:17] LABS: BUN (BLOOD UREA NITROGEN) 6 MG/DL (6-23); CALCIUM, SERUM 8.7 MG/DL (8.5-10.4); CHLORIDE, SERUM 103 MMOL/L (96-112); CO2 (CARBON DIOXIDE) 34 MMOL/L (24-34); CREATININE 0.51 MG/DL (0.55-1.02); GFR AFRICAN AMERICAN 109 ML/MIN (>=60); GFR NON AFRICAN AMERICAN 94 ML/MIN (>=60); GLUCOSE, SERUM 96 MG/DL (60-99); POTASSIUM, SERUM 3.5 MMOL/L (3.5-5.3); SODIUM, SERUM 140 MMOL/L (135-148)
== END 2016-12-31 17:25 | DRG 469 ==
LOC: ER 15:20 → 1SO 18:02 → 6NO 19:22 → SDC/OF 12-25 19:58 → CCU 12-25 21:01 → 1SO 12-29 10:59
PROVIDERS: Emergency Medicine; Family Medicine; Internal Medicine Critical Care Medicine; Nurse Practitioner Family; Orthopaedic Surgery Sports Medicine; Physician Assistant Medical; Specialist
PROC: 30233K1 Transfusion of Nonautologous Frozen Plasma into Peripheral Vein, Percutaneous Approach (ICD-10-PCS; 2016-12-23)
PROC: 0W9B3ZX Drainage of Left Pleural Cavity, Percutaneous Approach, Diagnostic (ICD-10-PCS; 2016-12-24)
PROC: 30233N1 Transfusion of Nonautologous Red Blood Cells into Peripheral Vein, Percutaneous Approach (ICD-10-PCS; 2016-12-24)
PROC: 5A1935Z Respiratory Ventilation, Less than 24 Consecutive Hours (ICD-10-PCS; 2016-12-25)
PROC: 0SR902A Replacement of Right Hip Joint with Metal on Polyethylene Synthetic Substitute, Uncemented, Open Approach (ICD-10-PCS; principal; 2016-12-25 16:00)
PROC: 0W9B30Z Drainage of Left Pleural Cavity with Drainage Device, Percutaneous Approach (ICD-10-PCS; 2016-12-26)
DX: S72.002A Fracture of unspecified part of neck of left femur, initial encounter for closed fracture (principal); J96.22 Acute and chronic respiratory failure with hypercapnia; J96.21 Acute and chronic respiratory failure with hypoxia; J90 Pleural effusion, not elsewhere classified; J95.811 Postprocedural pneumothorax; J44.9 Chronic obstructive pulmonary disease, unspecified; J98.11 Atelectasis; F03.90 Unspecified dementia, unspecified severity, without behavioral disturbance, psychotic disturbance, mood disturbance, and anxiety; I48.2 Chronic atrial fibrillation; Z99.81 Dependence on supplemental oxygen; G40.909 Epilepsy, unspecified, not intractable, without status epilepticus; I10 Essential (primary) hypertension; Z66 Do not resuscitate; E78.5 Hyperlipidemia, unspecified; D63.8 Anemia in other chronic diseases classified elsewhere; F41.8 Other specified anxiety disorders; W19.XXXA Unspecified fall, initial encounter; Z79.01 Long term (current) use of anticoagulants; Z79.899 Other long term (current) drug therapy; Z87.891 Personal history of nicotine dependence; Z86.73 Personal history of transient ischemic attack (TIA), and cerebral infarction without residual deficits; Z85.3 Personal history of malignant neoplasm of breast; Z90.12 Acquired absence of left breast and nipple; Z87.01 Personal history of pneumonia (recurrent); Z87.11 Personal history of peptic ulcer disease; Z88.0 Allergy status to penicillin
CPT/HCPCS: 31720; 32555; 36415; 36600; 70450; 71010; 72170; 73502-LT; 74000; 80048; 81001; 82805; 82945; 83615; 83735; 84100; 84157; 85014; 85018; 85025; 85610; 85730; 86850; 86900; 86901; 86920; 87070; 87077; 87086; 87186; 87205; 87641; 88112; 88305; 88311; 89051; 92610-GN; 93005; 94002; 94003; 94640; 94660; 94770; 97110-GP; 97161-GP; 97166-GO; 97530-GP; 99285; A9270-GY; C1713; C1776; C9113; J0330; J0690; J1885; J1940; J2274; J2370; J2710; J2795; J3010; J3370; J3430; J3475; P9016; P9059; Q2009